=== PATIENT | male | born 1960 | race Two or more races ===

== ENCOUNTER 2020-05-24 09:27 | Emergency (ER) | payer SELFPAY ==
[~2020-05-24] VITALS: Ht 172.7 cm; Wt 77.1 kg
[2020-05-24 09:40] VITALS: BP 149/110
[2020-05-24] MEDS ORDERED: methylPREDNISolone SOD SUCC 125 MG/2 ML VL IM ONE (10:30)
== END 2020-05-24 11:02 | disposition home or self-care (01) ==
LOC: ER 09:27
DX: L25.9 Unspecified contact dermatitis, unspecified cause (principal); F12.10 Cannabis abuse, uncomplicated
CPT/HCPCS: 96372; 99283; J2930

== ENCOUNTER 2025-07-30 14:11 | Inpatient (IN) | payer OTHER ==
[~2025-07-30] VITALS: Ht 172.7 cm; Wt 68.9 kg
--- NOTE | 2025-07-30 14:49 | ED.PDOC ---
Musculoskeletal HPI Comments 65 y/o M, BIBA, with PMHx of HTN presents to the ED for CC of left-leg numbness. EMS reports, patient is coming from home where he c/o worsening left-leg numbness [id number]. Patient reports, being seen by his PCP [id number] ago for SS and told symptoms were d/t sciatica nerve. Patient reports, prior to symptoms arising to have suffered an injury for which he never followed up with. Upon arrival to the Ed, patient is unable to to lift his left-lower extremity against gravity. No other symptoms or modifying factors are present at this time. Chief Complaint: Lower Extremity Time Seen by MD: 14:45 Primary Care Provider: NONE Reviewed Notes: Nurses Notes, Bonsai Culturist Notes, Medications, Allergies Allergies: Coded Allergies: NO KNOWN ALLERGIES (Unverified , 07/30/25) Information Source: Patient, Emergency Med Personnel Mode of Arrival: EMS Location: Left Extremity Location: Leg Timing: Months Prehospital treatment: None Severity: Moderate Able to Move Extremity: No Bear Weight: No Pain: None Mechanism: Spontaneous Circumstances: Spontaneous Onset of Symptoms: Spontaneous DVT Risk Factors: NONE Associated signs and symptoms: Numbness (left leg) Past Medical History PAST MEDICAL HISTORY: Denies Surgical History: Denies all surgeries Family History Family History: Reviewed,noncontributory to illness Social History Smoker: Non-Smoker Alcohol: Occasionally Drugs: Marijuana Lives In: Home Constitutional: denies: chills, diaphoresis, fatigue, fever, malaise, sweats, weakness, others EENTM: denies: blurred vision, double vision, ear bleeding, ear discharge, ear drainage, ear pain, ear ringing, eye pain, eye redness, hearing loss, mouth pain, mouth swelling, nasal discharge, nose bleeding, nose congestion, nose pain, photophobia, tearing, throat pain, throat swelling, voice changes, others Respiratory: denies: cough, hemoptysis, orthopnea, SOB at rest, shortness of breath, SOB with excertion, stridor, wheezing, others Cardiovascular: denies: chest pain, dizzy spells, diaphoresis, Dyspnea on exertion, edema, irregular heart beat, left arm pain, lightheadedness, palpitations, PND, syncope, others Gastrointestinal: denies: abdomen distended, abdominal pain, blood streaked bowels, constipated, diarrhea, dysphagia, difficulty swallowing, hematemesis, melena, nausea, poor appetite, poor fluid intake, rectal bleeding, rectal pain, vomiting, others Genitourinary: denies: burning, dysuria, flank pain, frequency, hematuria, incontinence, penile discharge, penile sore, pain, testicle pain, testicle sw elling, urgency, others Neurological: reports: others (left-leg numbness); denies: dizziness, fainting, headache, left sided numbness, left sided weakness, numbness, paresthesia, pre- existing deficit, right sided numbness, right sided weakness, seizure, speech problems, tingling, tremors, weakness Musculoskeletal: denies: back pain, gout, joint pain, joint swelling, muscle pain, muscle stiffness, neck pain, others Allergic/Immunocompromised: denies: Difficulty Healing, Frequent Infections, Hives, Itching, others Hematologic/Lymphatic: denies: anemia, blood clots, easy bleeding, easy bruising, swollen glands, others Endocrine: denies: excessive hunger, excessive sweating, excessive thirst, excessive urination, flushing, intolerance to cold, intolerance to heat, unexplained weight gain, unexplained weight loss, others Psychiatric: denies: anxiety, bipolar disorder, depression, hopeless, panic disorder, schizophrenia, sleepless, suicidal, others All Other Systems: Reviewed and Negative Physical Exam General Appearance: No Apparent Distress HEENT: Normal ENT Inspection, Pharynx Normal, TMs Normal Neck: Full Range of Motion, Non-Tender, Normal, Normal Inspection Respiratory: Chest Non-Tender, Lungs Clear, No Accessory Muscle Use, No Respiratory Distress, Normal Breath Sounds Cardiovascular: No Edema, No JVD, No Murmur, No Gallop, Normal Peripheral Pu lses, Regular Rate/Rhythm Breast Exam: Deferred Gastrointestinal: No Organomegaly, Non Tender, No Pulsatile Mass, Normal Bowel Sounds, Soft Genitalia: Deferred Pelvic: Deferred Rectal: Deferred Extremities: No calf tenderness, Normal capillary refill, No pedal edema Musculoskeletal : Apperance: Normal Neurologic: Alert, sales vendor II-XII nml as Tested, Motor Weakness (Left leg), Normal Affect, Normal Mood, No Sensory Deficits Cerebellar Function: Unable to Test Reflexes: Normal Skin: Dry, Normal Color, Warm Lymphatic: No Adenopathy Was a procedure done? Was a procedure done?: No Differential Diagnosis EXT Differential Diagnosis: Deep Vein Thrombosis, Neurovascular injury X-Ray, Labs, Meds, VS Vital Signs Date Time Temp Pulse Resp B/P (MAP) Pulse Ox O2 Delivery O2 Flow Rate FiO2 07/30/25 15:58 97.4 117 18 159/104 (122) 96 97.4 07/30/25 15:58 159/104 07/30/25 14:48 171/103 07/30/25 14:39 108 07/30/25 14:11 98.9 111 16 171/109 98 98.9 Lab Test 07/30/25 15:10 Range/Units White Blood Count 9.9 4.4-10.8 10^3/uL Red Blood Count 5.07 4.5-5.90 10^6/uL Hemoglobin 15.6 13.5-17.5 g/dL Hematocrit 45.8 41.0-53.0 % Mean Corpuscular Volume 90.4 80.0-100.0 fL Mean Corpuscular Hemoglobin 30.8 28.0-32.0 pg Mean Corpuscular Hemoglobin Concent 34.1 32.0-36.0 g/dL Red Cell Distribution Width 13.4 11.8-14.3 % Platelet Count 247 140-450 10^3/uL Mean Platelet Volume 8.1 6.9-10.8 fL Neutrophils (%) (Auto) 74.3 37.0-80.0 % Lymphocytes (%) (Auto) 16.8 10.0-50.0 % Monocytes (%) (Auto) 7.3 0.0-12.0 % Eosinophils (%) (Auto) 0.5 0.0-7.0 % Basophils (%) (Auto) 1.1 0.0-2.0 % Neutrophils # (Auto) 7.4 1.6-8.6 10 ^3/uL Lymphocytes # (Auto) 1.7 0.4-5.4 10 ^3/uL Monocytes # (Auto) 0.7 0-1.3 10 ^3/uL Eosinophils # (Auto) 0 0-0.8 10 ^3/uL Basophils # (Auto) 0.1 0-0.2 10 ^3/uL Nucleated Red Blood Cells 0.1 % Sodium Level 143 136-145 mmol/L Potassium Level 3.8 3.5-5.1 mmol/L Chloride Level 109 H 98-107 mmol/L Carbon Dioxide Level 23 20-31 mmol/L Anion Gap 11 5-15 Blood Urea Nitrogen 13 9-23 mg/dL Creatinine 0.75 0.700-1.30 mg/dL Glomerular Filtration Rate Calc 101 >90 mL/min BUN/Creatinine Ratio 17.3 10.0-20.0 Serum Glucose 98 74-106 mg/dL Calcium Level 9.5 8.7-10.4 mg/dL Current Medications Medications (Trade) Dose Ordered Sig/Nain Route Start Time Stop Time Status Last Admin Clonidine HCl (Catapres Tablet) 0.1 mg ONCE ONCE PO 07/30/25 14:45 07/30/25 14:46 DC 07/30/25 14:[address]: IMPRESSION: 1. No acute intracranial abnormality. 2. 2 polyp/retention cysts are seen in the left maxillary sinus LS SPINE CT: FINDINGS: There is a small central disc protrusion at the L4-5 level causing moderate encroachment upon the central canal as well as encroachment upon the exiting nerves bilaterally. No CT evidence of acute fracture or traumatic mal-alignment. The visualized paraspinal soft tissues are grossly unremarkable. There is mild levoscoliosis. Moderate disc height loss is seen at L4-5, high-grade disc height loss is seen at L5-S1. There is multilevel degenerative change of the spine, with disc space narrowing, subchondral sclerosis, and marginal osteophyte formation. IMPRESSION: 1. Small central disc protrusion at L4-5 as above. 2. Other degenerative changes as above The patient was given clonidine 0.1 mg by mouth The patient has a accelerated hypertension as hypertension is persistent The CBC and chemistry panel are within normal limits The patient is being admitted at this time A neurology consult will be obtained Images Reviewed?: Images reviewed and evaluated by me Time of 1ST Reevaluation: 15:15 Reevaluation 1ST: Unchanged Patient Education/Counseling: Diagnosis, Treatment, Prognosis Family Education/Counseling: No Family Present Departure 1 Departure Time of Disposition: 19:30 Impression: Primary Impression: Left leg weakness Disposition: ADMITTED INPATIENT Admit to: Med Surg Condition: Fair Critical Care Note Critical Care Time?: No Stability Stability form required: Yes Unstable for transfer: ED Physician Assesment (Clinical assesment) Heart Score Heart Score: Heart Score Response (Comments) Value History N/A 0 EKG N/A 0 Age N/A 0 Risk Factors N/A 0 Troponin N/A 0 Total 0 I personally scribed for CAMILO WALKER MD ([email or web address]) on 07/30/25 at 14:49. Electronically submitted by Deepthi Oneill ([email or web address]). I personally scribed for CAMILO WALKER MD ([email or web address]) on 07/30/25 at 15:05. Electronically submitted by Deepthi Oneill ([email or web address]). I personally scribed for CAMILO WALKER MD ([email or web address]) on 07/30/25 at 16:06. Electronically submitted by Deepthi Oneill ([email or web address]). CAMILO WALKER MD Jul 30, 2025 14:49
--- NOTE | 2025-07-30 15:31 | DVH ---
EXAM: CT HEAD WITHOUT CONTRAST INDICATION: Left leg weakness TECHNIQUE: CT of the head without intravenous contrast. Radiation Dose Information: CT Dose: CTDI volume is 59 mGy. Dose-length product is 1162 mGy*cm The dose indicators for CT are the volume Computed Tomography (CT) Dose Index (CTDIvol) and the Dose Length Product (DLP), and are measured in units of mGy and mGy-cm, respectively. These indicators are not patient dose, but values generated from the CT scanner acquisition factors. The report includes radiation exposure data for exposures received during this examination. COMPARISON: None FINDINGS: There is no evidence of acute intracranial hemorrhage, extra-axial collection, mass effect, midline shift, herniation or hydrocephalus. The ventricles, sulci and cisterns are age appropriate. Encephalomalacia noted. Patchy periventricular and subcortical white matter hypoattenuation is nonspecific but may be related to small vessel ischemic disease. 2 polyps/retention cysts are seen in the left maxillary sinus The surrounding soft tissues and osseous structures are unremarkable. IMPRESSION: 1. No acute intracranial abnormality. 2. 2 polyp/retention cysts are seen in the left maxillary sinus
--- NOTE | 2025-07-30 15:39 | DVH ---
EXAM: CT LS SPINE WO CONTRAST INDICATION: Left leg weakness COMPARISON: IH-X-RAY, SPINE, LUMBAR 3 VIEWS on DOS: 06/15/25 TECHNIQUE: Multiple axial CT images of the lumbar spine were obtained using bone algorithm. Axial and coronal reformatting was done. Bone and soft tissue windows were reviewed. Radiation Dose Information: CT Dose: CTDI volume is 22.42 mGy. Dose-length product is 867.58 mGy*cm FINDINGS: There is a small central disc protrusion at the L4-5 level causing moderate encroachment upon the central canal as well as encroachment upon the exiting nerves bilaterally. No CT evidence of acute fracture or traumatic mal-alignment. The visualized paraspinal soft tissues are grossly unremarkable. There is mild levoscoliosis. Moderate disc height loss is seen at L4-5, high-grade disc height loss is seen at L5-S1. There is multilevel degenerative change of the spine, with disc space narrowing, subchondral sclerosis, and marginal osteophyte formation. IMPRESSION: 1. Small central disc protrusion at L4-5 as above. 2. Other degenerative changes as above 3. Radiation optimization: All CT scans at this facility use at least one of these dose optimization techniques: automated exposure control mA and/or kV adjustment per patient size (includes targeted exams where dose is matched to clinical indication) or iterative reconstruction.
[2025-07-30 15:45] LABS: Hematocrit 45.8 % (41.0-53.0); Hemoglobin 15.6 g/dL (13.5-17.5); Mean Corpuscular Hemoglobin 30.8 pg (28.0-32.0); Mean Corpuscular Volume 90.4 fL (80.0-100.0); Nucleated Red Blood Cells % 0.1 %
[2025-07-30 15:51] LABS: Potassium 3.8 mmol/L (3.5-5.1); Sodium 143 mmol/L (136-145)
[2025-07-30 15:52] LABS: Anion Gap 11 (5-15); Calcium 9.5 mg/dL (8.7-10.4); Carbon Dioxide 23 mmol/L (20-31)
[2025-07-30 15:55] LABS: Chloride 109 mmol/L (98-107)
[2025-07-30 15:57] LABS: BUN/Creatinine Ratio 17.3 (10.0-20.0); Blood Urea Nitrogen 13 mg/dL (9-23); Glucose 98 mg/dL (74-106)
--- NOTE | 2025-07-30 18:37 | ECG ---
[facility] Test Date: 2025-07-30 Test Time: 14:39:45 Pat Name: VARGAS JIMENEZ Department: [facility] ED Room: 0215 Gender: M Rn Trauma: [place] : 1960 Requested By: CAMLIO WALKER Order Number: [id number] Reading MD: Kodak Gonzalez Measurements Intervals [place] Rate: 108 P: 56 MD: 157 QRS: -79 QRSD: 98 T: 44 QT: 337 QTc: 452 Interpretive Statements Sinus tachycardia Abnormal R-wave progression, late transition Inferior infarct, old Electronically Signed On 08-03-2025 15:21:19 PST by Kodak Gonzalez Please click the below link to view image of tracing.
--- NOTE | 2025-07-30 18:42 | DVHHP2 ---
Admitting Diagnosis: LT leg numbness History of Present Illness 65 y/o M PMHx of HTN presents to the ED for left-leg numbness for the past 6 months. While in the emergency department the patient was evaluated by the provider, As per provider: Labs, vital signs, and imagining monitored. Patient will be admitted for further evaluation and treatment. I discussed admission with the patient/family and is in agreement to treatment plan. Allergies: Coded Allergies: NO KNOWN ALLERGIES (Unverified , 07/30/25) Current Medications Current Medications Medications (Trade) Dose Ordered Sig/Nain Route PRN Reason Start Time Stop Time Status Last Admin Acetaminophen/ Hydrocodone Bitart ([place] 5/325MG Tab) 1 tab Q4HP PRN PO MODERATE PAIN (4-6 PAIN SCALE) 07/30/25 18:45 07/30/25 19:05 Temazepam (Restoril) 15 mg QHSP PRN PO FOR INSOMNIA 07/30/25 18:45 Ondansetron HCl (Zofran) 4 mg Q4HP PRN IV NAUSEA / VOMITING 07/30/25 18:45 Docusate Sodium (Colace Capsule) 100 mg BIDPRN PRN PO FOR CONSTIPATION 07/30/25 18:45 Acetaminophen (Tylenol Tablet) 650 mg Q6HP PRN PO PAIN SCALE 1-3 OR TEMP>100.4 07/30/25 18:45 Enoxaparin Sodium (Lovenox) 40 mg DAILY SC 07/31/25 10:00 Carisoprodol (Soma Tablet) 350 mg TID PO 07/30/25 22:00 08/02/25 21:59 Ibuprofen (Motrin Tablet) 800 mg TID PO 07/30/25 22:00 08/02/25 21:59 Prednisone 40 mg DAILY PO 07/30/25 22:00 Famotidine (Pepcid Tablet) 40 mg DAILY PO 07/31/25 10:00 Review of Systems Constitutional: denies chills, denies fever, denies malaise Eyes: denies eye pain, denies vision change ENT: denies ear pain, denies headache, denies nasal congestion, denies painful swallowing, denies voice change Cardiovascular: denies chest pain, denies edema, denies orthopnea, denies palpitations, denies paroxysmal nocturnal dyspnea Respiratory: denies cough, denies shortness of breath Gastrointestinal: denies constipation, denies diarrhea, denies nausea, denies vomiting Genitourinary: denies dysuria, denies frequent urination, denies urethral discharge Musculoskeletal: denies back pain, denies joint pain, denies muscle pain Skin: denies bruising, denies itching, denies rash Neurological: denies focal weakness, denies headache, denies sensory changes Psychiatric: denies anxiety, denies depression Endocrine: denies polydipsia, denies polyuria Hematologic/Lymphatic: denies easy bleeding, denies easy bruising, denies enlarged lymph nodes Allergic/Immunologic: denies allergy, denies hives Vital Signs Vital Signs Date Time Temp Pulse Resp B/P (MAP) Pulse Ox O2 Delivery O2 Flow Rate FiO2 07/30/25 19:21 98.4 110 20 147/93 (111) 95 98.4 Physical Exam General Appearance: alert, no distress HEENT: EOMI, PERRLA, normal external inspect of ears, no icterus, no nasal drainage Neck: no carotid bruit, no jugular venous distention (JVD), no lymphadenopathy Chest: normal thorax Respiratory: clear to auscultation, normal air movement Cardiovascular: regular rate and rhythm, no diastolic murmur, no jugular venous distention (JVD), no rub, no systolic murmur Abdominal: soft, no hepatomegaly, no mass, no splenomegaly, no tenderness Genitourinary: grossly normal external Musculoskeletal: no joint tenderness, no swelling Extremities: normal pulses, no calf tenderness, no clubbing, no cyanosis, no edema Skin: no bruising, no jaundice, no rash Neurological: alert, No focal deficit SEPSIS Sepsis Screen Date sepsis recognized/suspect: Jul 30, 2025 Time Sepsis recognized/suspect: 1410 Recent Procedure: No On Antibiotic Therapy: No Respiratory Rate >20: No Heart Rate >90: No Temp<36 C (96.8 F) or >38.3 C: No SBP <90 or MAP <65 mmHG: No New Acute Mental Status Change: No Is the patient on CPAP, BIPAP,: No Physician Orders Urinalysis (07/30/25 14:48) Heplock Iv (07/30/25 14:48) Head Without Contrast (07/30/25 14:48) Ls Spine Wo Contrast (07/30/25 14:48) Admit (07/30/25 18:36) Code Status (07/30/25 18:36) Hydrocodone-Acet 5/325mg Tab ([place] 5/32 (07/30/25 18:45) Temazepam (Restoril) (07/30/25 18:45) Ondansetron Hcl (Zofran) (07/30/25 18:45) Docusate Sodium Capsule (Colace Capsule) (07/30/25 18:45) Fall Risk Precautions In Place QSHIFT (07/30/25 18:36) Complete Blood Count (07/31/25 04:00) Comprehensive Metabolic Panel (07/31/25 04:00) Cardiac Diet-2gna,Lofat,Lochol (07/31/25 Breakfast) Condition: Fair (07/30/25 18:36) Acetaminophen Tablet (Tylenol Tablet) (07/30/25 18:45) Enoxaparin Sodium (Lovenox) (07/31/25 10:00) Consultdr. Griffin Bronson(Spine) (07/30/25 18:36) Lumbar Spine Wo Contrast (07/30/25 18:36) Carisoprodol Tablet (Soma Tablet) (07/30/25 22:00) Ibuprofen Tablet (Motrin Tablet) (07/30/25 22:00) Prednisone Tablet (07/30/25 22:00) Famotidine Tablet (Pepcid Tablet) (07/31/25 10:00) Pt Request For Service (07/30/25 18:36) Vital Signs Date Time Temp Pulse Resp B/P (MAP) Pulse Ox O2 Delivery O2 Flow Rate FiO2 07/30/25 19:21 98.4 110 20 147/93 (111) 95 98.4 07/30/25 15:58 97.4 117 18 159/104 (122) 96 97.4 07/30/25 15:58 159/104 07/30/25 14:48 171/103 07/30/25 14:39 108 07/30/25 14:11 98.9 111 16 171/109 98 98.9 Laboratory Tests Test 07/30/25 15:10 White Blood Count 9.9 10^3/uL (4.4-10.8) Medications Medications Dose Ordered Sig/Nain Route Start Time Stop Time Status Last Admin Dose Admin Acetaminophen/ Hydrocodone Bitart 1 tab Q4HP PRN PO 07/30/25 18:45 07/30/25 19:05 Clonidine HCl 0.1 mg ONCE ONCE PO 07/30/25 14:45 07/30/25 14:46 DC 07/30/25 14:48 Results Labs Test 07/30/25 15:10 Range/Units White Blood Count 9.9 4.4-10.8 10^3/uL Red Blood Count 5.07 4.5-5.90 10^6/uL Hemoglobin 15.6 13.5-17.5 g/dL Hematocrit 45.8 41.0-53.0 % Mean Corpuscular Volume 90.4 80.0-100.0 fL Mean Corpuscular Hemoglobin 30.8 28.0-32.0 pg Mean Corpuscular Hemoglobin Concent 34.1 32.0-36.0 g/dL Red Cell Distribution Width 13.4 11.8-14.3 % Platelet Count 247 140-450 10^3/uL Mean Platelet Volume 8.1 6.9-10.8 fL Neutrophils (%) (Auto) 74.3 37.0-80.0 % Lymphocytes (%) (Auto) 16.8 10.0-50.0 % Monocytes (%) (Auto) 7.3 0.0-12.0 % Eosinophils (%) (Auto) 0.5 0.0-7.0 % Basophils (%) (Auto) 1.1 0.0-2.0 % Neutrophils # (Auto) 7.4 1.6-8.6 10 ^3/uL Lymphocytes # (Auto) 1.7 0.4-5.4 10 ^3/uL Monocytes # (Auto) 0.7 0-1.3 10 ^3/uL Eosinophils # (Auto) 0 0-0.8 10 ^3/uL Basophils # (Auto) 0.1 0-0.2 10 ^3/uL Nucleated Red Blood Cells 0.1 % Sodium Level 143 136-145 mmol/L Potassium Level 3.8 3.5-5.1 mmol/L Chloride Level 109 H 98-107 mmol/L Carbon Dioxide Level 23 20-31 mmol/L Anion Gap 11 5-15 Blood Urea Nitrogen 13 9-23 mg/dL Creatinine 0.75 0.700-1.30 mg/dL Glomerular Filtration Rate Calc 101 >90 mL/min BUN/Creatinine Ratio 17.3 10.0-20.0 Serum Glucose 98 74-106 mg/dL Calcium Level 9.5 8.7-10.4 mg/dL Plan 1. Lumbar spinal stenosis with radiculopathy Monitor, lumbar spinal consult, PT eval, muscle relaxers, NSAIDs, pain meds 2. Left lower extremity weakness Monitor, lumbar spinal consult, PT eval, muscle relaxers, NSAIDs, pain meds 3. Left lower extremity numbness Monitor, lumbar spinal consult, PT eval, muscle relaxers, NSAIDs, pain meds 4. Benign essential hypertension Monitor, DVT prophylaxis, PPI Plan discussed with: Patient, Other FARHEEN WALTERS NP Jul 30, 2025 18:42
[2025-07-30] MEDS ORDERED: ACETAMINOPHEN 325 MG TAB PO PRN (18:45)
[2025-07-30] MEDS ORDERED: DOCUSATE SOD 100 MG CAP PO PRN (18:45)
[2025-07-30] MEDS ORDERED: ONDANSETRON HCL 4 MG/2 ML VIAL IV PRN (18:45)
[2025-07-30] MEDS: HYDROcodone-ACET 5/325MG TAB PO PRN (19:05)
--- NOTE | 2025-07-30 19:39 | DVHINCON2 ---
Consultation - Surgical Date Seen: Jul 30, 2025 Referring Physician Referring Physician Attending Doctor: Farheen Walters Np Reason for Consultation Chief Complaint: Lower Extremity History of Present Illness History of Present Illness addendum:07/31/25 MRI results ORDERING PHYSICIAN: FARHEEN WALTERS NP PROCEDURE(s): MSL - LUMBAR SPINE WO CONTRAST REASON: r/o cauda aquina ORDER NUMBER(s): [id number], ACCESSION NUMBER(s): [id number] PROCEDURE: MRI LUMBAR SPINE WO CONTRAST INDICATION: r/o cauda aquina COMPARISON: None TECHNIQUE: Multiplanar multisequence images of the the lumbar spine are obtained. FINDINGS: For the purpose of this examination, there are 5 lumbar vertebral body types counting from the lumbosacral junction. The lumbar vertebral body heights are maintained. Moderate multilevel disc space narrowing and desiccation. Conus terminates at the T12 level. No abnormal marrow edema. T12-L1: Tiny disc protrusion. Mild facet and flavum hypertrophy. No spinal canal, neural foraminal stenosis. L1-2: Tiny disc protrusion. Mild facet and flavum hypertrophy. No spinal canal, neural foraminal stenosis. L2-3: 2 mm disc protrusion. Mild facet and flavum hypertrophy. No spinal canal stenosis. Mild bilateral neural foraminal stenosis. L3-4: 3 mm broad-based disc protrusion. Fnqj-yc-xuiyqknr facet and flavum hypertrophy. No spinal canal stenosis. Extb-gj-euirjdsn bilateral neural foraminal stenosis. L4-5: Right paracentral disc protrusion extending 4 mm posteriorly. Moderate facet and flavum hypertrophy. No spinal canal stenosis. Moderate to severe right and moderate left neural foraminal stenosis. The right paracentral disc protrusion compresses upon the descending right L5 nerve root. L5-S1: Small disc osteophyte complex. Moderate facet and flavum hypertrophy. N o spinal canal stenosis. Awro-jz-lfjbqtth left and mild right neural foraminal stenosis. IMPRESSION: Moderate lumbar degenerative disc disease. Right paracentral disc extrusion at L4-5 resulting in moderate to severe right and moderate left neural foraminal stenosis. This also compresses upon the descending right L5 nerve root. Dfmp-bn-rvklljod neural foraminal stenosis at L2-3, L3-4 and L5-S1 as described HPI Comments 65 y/o M, BIBA, with PMHx of HTN presents to the ED for CC of left-leg numbness. EMS reports, patient is coming from home where he c/o worsening left-leg numbness [id number]. Patient reports, being seen by his PCP [id number] ago for SS and told symptoms were d/t sciatica nerve. Patient reports, prior to symptoms arising to have suffered an injury for which he never followed up with. Upon arrival to the Ed, patient is unable to to lift his left-lower extremity against gravity. No other symptoms or modifying factors are present at this time. Past Medical/Surgical History Past Medical/Surgical History Past Medical History PAST MEDICAL HISTORY: Denies Surgical History: Denies all surgeries Family and Social History Family and Social History Family History Family History: Reviewed,noncontributory to illness Social History Smoker: Non-Smoker Alcohol: Occasionally Drugs: Marijuana Lives In: Home Allergies and medications Allergies: Coded Allergies: NO KNOWN ALLERGIES (Unverified , 07/30/25) Home Meds Active Scripts Baclofen (Baclofen) 20 Mg Tab, 10 MG PO TID, #42 TAB Prov:AIDAN ROBLEDO [employer] 07/31/25 Review of systems Review of Systems: NEURO:Abnormal (Spine specific review of symptoms: Left leg weakness patient says he has been having sciatica left leg issues x6 months) Examination Vital signs Imaging: ORDERING PHYSICIAN: CAMILO WALKER MD PROCEDURE(s): LS2CT - LS SPINE WO CONTRAST REASON: Left leg weakness ORDER NUMBER(s): [id number], ACCESSION NUMBER(s): [id number] EXAM: CT LS SPINE WO CONTRAST INDICATION: Left leg weakness COMPARISON: [facility]-X-RAY, SPINE, LUMBAR 3 VIEWS on DOS: 06/15/25 TECHNIQUE: Multiple axial CT images of the lumbar spine were obtained using bone algorithm. Axial and coronal reformatting was done. Bone and soft tissue windows were reviewed. Radiation Dose Information: CT Dose: CTDI volume is 22.42 mGy. Dose-length product is 867.58 mGy*cm FINDINGS: There is a small central disc protrusion at the L4-5 level causing moderate encroachment upon the central canal as well as encroachment upon the exiting nerves bilaterally. No CT evidence of acute fracture or traumatic mal-alignment. The visualized paraspinal soft tissues are grossly unremarkable. There is mild levoscoliosis. Moderate disc height loss is seen at L4-5, high-grade disc height loss is seen at L5-S1. There is multilevel degenerative change of the spine, with disc space narrowing, subchondral sclerosis, and marginal osteophyte formation. IMPRESSION: 1. Small central disc protrusion at L4-5 as above. 2. Other degenerative changes as above 3. Radiation optimization: All CT scans at this facility use at least one of these dose optimization techniques: automated exposure control mA and/or kV adjustment per patient size (includes targeted exams where dose is matched to clinical indication) or iterative reconstruction. Vital Signs Date Time Temp Pulse Resp B/P (MAP) Pulse Ox O2 Delivery O2 Flow Rate FiO2 07/30/25 19:21 98.4 110 20 147/93 (111) 95 98.4 Medications Current Medications Medications (Trade) Dose Ordered Sig/Nain Route PRN Reason Start Time Stop Time Status Last Admin Acetaminophen/ Hydrocodone Bitart ([place] 5/325MG Tab) 1 tab Q4HP PRN PO MODERATE PAIN (4-6 PAIN SCALE) 07/30/25 18:45 07/30/25 19:05 Temazepam (Restoril) 15 mg QHSP PRN PO FOR INSOMNIA 07/30/25 18:45 Ondansetron HCl (Zofran) 4 mg Q4HP PRN IV NAUSEA / VOMITING 07/30/25 18:45 Docusate Sodium (Colace Capsule) 100 mg BIDPRN PRN PO FOR CONSTIPATION 07/30/25 18:45 Acetaminophen (Tylenol Tablet) 650 mg Q6HP PRN PO PAIN SCALE 1-3 OR TEMP>100.4 07/30/25 18:45 Enoxaparin Sodium (Lovenox) 40 mg DAILY SC 07/31/25 10:00 Carisoprodol (Soma Tablet) 350 mg TID PO 07/30/25 22:00 08/02/25 21:59 Ibuprofen (Motrin Tablet) 800 mg TID PO 07/30/25 22:00 08/02/25 21:59 Prednisone 40 mg DAILY PO 07/30/25 22:00 Famotidine (Pepcid Tablet) 40 mg DAILY PO 07/31/25 10:00 Laboratory Labs Test 07/30/25 15:10 Range/Units White Blood Count 9.9 4.4-10.8 10^3/uL Red Blood Count 5.07 4.5-5.90 10^6/uL Hemoglobin 15.6 13.5-17.5 g/dL Hematocrit 45.8 41.0-53.0 % Mean Corpuscular Volume 90.4 80.0-100.0 fL Mean Corpuscular Hemoglobin 30.8 28.0-32.0 pg Mean Corpuscular Hemoglobin Concent 34.1 32.0-36.0 g/dL Red Cell Distribution Width 13.4 11.8-14.3 % Platelet Count 247 140-450 10^3/uL Mean Platelet Volume 8.1 6.9-10.8 fL Neutrophils (%) (Auto) 74.3 37.0-80.0 % Lymphocytes (%) (Auto) 16.8 10.0-50.0 % Monocytes (%) (Auto) 7.3 0.0-12.0 % Eosinophils (%) (Auto) 0.5 0.0-7.0 % Basophils (%) (Auto) 1.1 0.0-2.0 % Neutrophils # (Auto) 7.4 1.6-8.6 10 ^3/uL Lymphocytes # (Auto) 1.7 0.4-5.4 10 ^3/uL Monocytes # (Auto) 0.7 0-1.3 10 ^3/uL Eosinophils # (Auto) 0 0-0.8 10 ^3/uL Basophils # (Auto) 0.1 0-0.2 10 ^3/uL Nucleated Red Blood Cells 0.1 % Sodium Level 143 136-145 mmol/L Potassium Level 3.8 3.5-5.1 mmol/L Chloride Level 109 H 98-107 mmol/L Carbon Dioxide Level 23 20-31 mmol/L Anion Gap 11 5-15 Blood Urea Nitrogen 13 9-23 mg/dL Creatinine 0.75 0.700-1.30 mg/dL Glomerular Filtration Rate Calc 101 >90 mL/min BUN/Creatinine Ratio 17.3 10.0-20.0 Serum Glucose 98 74-106 mg/dL Calcium Level 9.5 8.7-10.4 mg/dL Examination: GENERAL:Normal (Patient does not appear to be in distress), HEENT:Normal (No complaints), NECK:Normal (No complaints), LUNGS:Normal (Patient is taking full sentences), CVS:Normal (No complaints), ABDOMEN:Normal (Patient does not report any abdominal issues), MSK:Normal (all long bones intact), SKIN:Normal, NEURO:Abnormal (Left leg numbness, significantly weak 2/5 ), :Normal (No reported issues) Problem List/Assessment/Plan Problems: (1) Herniation of intervertebral disc between L4 and L5 (2) Left leg weakness Assessment and Plan Small central disc protrusion seen on CT scan, pending MRI lumbar without contrast. Patient's left leg symptoms are disproportionate to the CT findings Further spine surgery comments after MRI is reviewed MRI: Right paracentral disc extrusion at L4-5 resulting in moderate to severe right and moderate left neural foraminal stenosis. This also compresses upon the descending right L5 nerve root. Ceoe-at-oukzazqo neural foraminal stenosis at L2-3, L3-4 and L5-S1 Continue care and support per admitting team's discretion Physical therapy evaluation, treatment recommendations and safe discharge planning recommendations Effective pain management including muscle relaxers if the patient is complaining of muscle spasms Discussed the need for an MRI of the lumbar spine without contrast with the patient. Discussed surgical intervention with the patient which he declined. He would like to see his PCP and attempt PT and pain management first. Call with questions Ryne Foster [facility] Orthopaedic Spine Surgery nurse practitioner For Dr Luis Akhtar Patient was examined, chart reviewed, labs evaluated, and diagnostic studies and findings analyzed. Case was discussed with Dr. Griffin Akhtar who formulated the plan of care. This medical document was created using an electronic medical record system with [employer] dictation system. Although this document has been carefully reviewed, there might still be some phonetic and typographical errors. These areas are purely typographical due to imperfections of the software programs, and do not reflect any compromise in the patient's medical care. Plan discussed with Plan discussed with: Patient, Other (admitting provider) Visit Coding Surgery Date of Service if different f: Jul 30, 2025 Billing Provider: RICHARDSON FOSTER NP Surgery Visit Codes: 72248 - INP CONSULT <55 MIN RICHARDSON FOSTER NP Jul 30, 2025 19:39
[2025-07-30 22:00] VITALS: BP 145/91; PULSE 96; RESP 18; TEMP 98.7; O2SAT 98
[2025-07-30] MEDS: IBUPROFEN 800 MG TAB PO SCH (22:00)
[2025-07-30] MEDS: predniSONE 20 MG TAB PO SCH (22:13)
[2025-07-30] MEDS: TEMAZEPAM 15 MG CAP PO PRN (22:19)
[2025-07-30] MEDS: CARISOPRODOL 350 MG TAB PO SCH (22:19)
[2025-07-30 22:30] VITALS: BP 145/91; PULSE 96; RESP 18; TEMP 98.7; O2SAT 98
[2025-07-31 01:00] VITALS: BP 128/80; PULSE 88; RESP 16; TEMP 98.4; O2SAT 97
[2025-07-31 05:00] VITALS: BP 139/88; PULSE 98; RESP 18; TEMP 98.1; O2SAT 95
[2025-07-31 07:04] LABS: Hematocrit 46.3 % (41.0-53.0); Hemoglobin 15.7 g/dL (13.5-17.5); Mean Corpuscular Hemoglobin 30.9 pg (28.0-32.0); Mean Corpuscular Volume 90.9 fL (80.0-100.0); Nucleated Red Blood Cells % 0.1 %
[2025-07-31 07:21] LABS: Alanine Aminotransferase 29 U/L (7-40); Albumin 4.4 g/dL (3.2-4.8); Alkaline Phosphatase 74 U/L (46-116); Anion Gap 12 (5-15); BUN/Creatinine Ratio 13.0 (10.0-20.0); Bilirubin, Total 0.7 mg/dL (0.2-1.0); Blood Urea Nitrogen 10 mg/dL (9-23); Calcium 9.4 mg/dL (8.7-10.4); Carbon Dioxide 22 mmol/L (20-31); Chloride 107 mmol/L (98-107); Potassium 4.0 mmol/L (3.5-5.1); Sodium 141 mmol/L (136-145); Total Protein 7.3 g/dL (5.7-8.2)
[2025-07-31 07:22] LABS: Glucose 113 mg/dL (74-106)
[2025-07-31 08:45] VITALS: BP 101/67; PULSE 99; RESP 20; TEMP 98.1; O2SAT 97
--- NOTE | 2025-07-31 09:22 | DVH ---
PROCEDURE: MRI LUMBAR SPINE WO CONTRAST INDICATION: r/o cauda aquina COMPARISON: None TECHNIQUE: Multiplanar multisequence images of the the lumbar spine are obtained. FINDINGS: For the purpose of this examination, there are 5 lumbar vertebral body types counting from the lumbosacral junction. The lumbar vertebral body heights are maintained. Moderate multilevel disc space narrowing and desiccation. Conus terminates at the T12 level. No abnormal marrow edema. T12-L1: Tiny disc protrusion. Mild facet and flavum hypertrophy. No spinal canal, neural foraminal stenosis. L1-2: Tiny disc protrusion. Mild facet and flavum hypertrophy. No spinal canal, neural foraminal stenosis. L2-3: 2 mm disc protrusion. Mild facet and flavum hypertrophy. No spinal canal stenosis. Mild bilateral neural foraminal stenosis. L3-4: 3 mm broad-based disc protrusion. Mfqs-oa-nzfuatye facet and flavum hypertrophy. No spinal canal stenosis. Harz-rm-dawwmcgy bilateral neural foraminal stenosis. L4-5: Right paracentral disc protrusion extending 4 mm posteriorly. Moderate facet and flavum hypertrophy. No spinal canal stenosis. Moderate to severe right and moderate left neural foraminal stenosis. The right paracentral disc protrusion compresses upon the descending right L5 nerve root. L5-S1: Small disc osteophyte complex. Moderate facet and flavum hypertrophy. No spinal canal stenosis. Qhbv-tx-bpubejtt left and mild right neural foraminal stenosis. IMPRESSION: Moderate lumbar degenerative disc disease. Right paracentral disc extrusion at L4-5 resulting in moderate to severe right and moderate left neural foraminal stenosis. This also compresses upon the descending right L5 nerve root. Vaak-kc-qbargwql neural foraminal stenosis at L2-3, L3-4 and L5-S1 as described
[2025-07-31] MEDS: FAMOTIDINE 20 MG TAB PO SCH (11:15)
[2025-07-31] MEDS: ENOXAPARIN SOD 40 MG/0.4 ML SYRINGE SC SCH (11:15)
[2025-07-31] MEDS ORDERED: BACL20TA PO (11:48)
[2025-07-31 13:16] VITALS: BP 142/84; PULSE 86; RESP 20; TEMP 98; O2SAT 98
--- NOTE | 2025-07-31 16:16 | DVHDS2 ---
Discharge Summary Date of Admission Jul 30, 2025 at 18:36 Date of Discharge: Jul 31, 2025 Admitting Diagnosis lumbar stenosis Labs/Diagnostic Data: Laboratory Results Test 07/31/25 05:35 White Blood Count 7.4 10^3/uL (4.4-10.8) Red Blood Count 5.09 10^6/uL (4.5-5.90) Hemoglobin 15.7 g/dL (13.5-17.5) Hematocrit 46.3 % (41.0-53.0) Mean Corpuscular Volume 90.9 fL (80.0-100.0) Mean Corpuscular Hemoglobin 30.9 pg (28.0-32.0) Mean Corpuscular Hemoglobin Concent 33.9 g/dL (32.0-36.0) Red Cell Distribution Width 13.3 % (11.8-14.3) Platelet Count 233 10^3/uL (140-450) Mean Platelet Volume 8.2 fL (6.9-10.8) Neutrophils (%) (Auto) 84.8 % (37.0-80.0) Lymphocytes (%) (Auto) 12.4 % (10.0-50.0) Monocytes (%) (Auto) 2.4 % (0.0-12.0) Eosinophils (%) (Auto) 0.0 % (0.0-7.0) Basophils (%) (Auto) 0.4 % (0.0-2.0) Neutrophils # (Auto) 6.3 10 ^3/uL (1.6-8.6) Lymphocytes # (Auto) 0.9 10 ^3/uL (0.4-5.4) Monocytes # (Auto) 0.2 10 ^3/uL (0-1.3) Eosinophils # (Auto) 0 10 ^3/uL (0-0.8) Basophils # (Auto) 0 10 ^3/uL (0-0.2) Nucleated Red Blood Cells 0.1 % Sodium Level 141 mmol/L (136-145) Potassium Level 4.0 mmol/L (3.5-5.1) Chloride Level 107 mmol/L (98-107) Carbon Dioxide Level 22 mmol/L (20-31) Anion Gap 12 (5-15) Blood Urea Nitrogen 10 mg/dL (9-23) Creatinine 0.77 mg/dL (0.700-1.30) Glomerular Filtration Rate Calc 101 mL/min (>90) BUN/Creatinine Ratio 13.0 (10.0-20.0) Serum Glucose 113 mg/dL (74-106) Calcium Level 9.4 mg/dL (8.7-10.4) Total Bilirubin 0.7 mg/dL (0.2-1.0) Aspartate Amino Transferase (AST) 27 U/L (13-40) Alanine Aminotransferase (ALT) 29 U/L (7-40) Alkaline Phosphatase 74 U/L (46-116) Total Protein 7.3 g/dL (5.7-8.2) Albumin 4.4 g/dL (3.2-4.8) Other Laboratory Tests 07/31/25 05:35 Brief Hx & Hospital Course: Patient was admitted for evaluation of left lower extremity numbness and was found to have severe lumbar spinal stenosis with associated radiculopathy. During hospitalization, MRI of the lumbar spine demonstrated moderate lumbar degenerative disc disease with a right paracentral disc extrusion at L4L5 resulting in moderate to severe right and moderate left neural foraminal stenosis, with compression of the descending right L5 nerve root. Additional findings included mild to moderate neural foraminal stenosis at L2L3, L3L4, and L5S1 levels. The patient was evaluated by the spine surgery team under Dr. Akhtar, who recommended surgical intervention given the severity of findings and symptoms. However, the patient declined surgical management at this time and expressed a preference to pursue outpatient follow-up with his primary care provider to further discuss surgical options. The patient also wishes to initiate physical therapy as an outpatient, which will be arranged by his primary care provider. He remained clinically stable during hospitalization and is being discharged with instructions to follow up closely with his primary care provider for coordination of outpatient spine care and physical therapy. Condition at Discharge: Fair Final Diagnosis/Problems List Lumbar spinal stenosis with radiculopathy 2. Left lower extremity weakness 3. Left lower extremity numbness 4. Benign essential hypertension Discharge Disposition: Home Discharge Instruct/Medications Diet: Cardiac 2g Na,low cholest Activity: No Restrictions, As Tolerated Follow Up/Referral: PCP within 1 week orthopedic surgery Scheduled Baclofen (Baclofen), 10 MG PO TID Discharge Statement: "Patient was advised to return to the ER or call 911 if any headaches, dizziness, shortness of breath, chest pain, abdominal pain, bleeding, fevers, or worsening of medical condition. Patient was counseled about treatment plan, medications, possible side effects, patientverbalized understanding. All questions were answered to the best of my ability. This discharge took greater then 30 minutes in planning, reviewing documentation, counseling the patient, and discussing with other team members." ASSESSMENT ASSESSMENT Assessment Lumbar spinal stenosis with radiculopathy 2. Left lower extremity weakness 3. Left lower extremity numbness 4. Benign essential hypertension AIDAN ROBLEDO [facility] Jul 31, 2025 16:16
[2025-07-31] MEDS ORDERED: TEMA15CA2 PO (17:33)
== END 2025-07-31 17:30 | disposition home or self-care (01) | DRG 347 ==
LOC: EDUNIT# 14:11 → EDBD 14:11 → ER 14:11 → OVERFLOW 18:36 → CENTRAL 21:58
PROVIDERS: ADMIT Nurse Practitioner; ATTEND Nurse Practitioner
DX: M48.061 Spinal stenosis, lumbar region without neurogenic claudication (principal); I16.0 Hypertensive urgency; I10 Essential (primary) hypertension; M51.16 Intervertebral disc disorders with radiculopathy, lumbar region
CPT/HCPCS: 36415; 70450; 72131; 72148; 80048; 80053; 85025; 93005; 97163; G0378